=== PATIENT | female | born 1970 | race Caucasian/White ===

== ENCOUNTER 2025-01-13 13:20 | Emergency (ER) | payer MEDICAID, SELFPAY ==
[2025-01-13 13:51] VITALS: BP 126/65; PULSE 63; RESP 18; TEMP 36.7; O2SAT 98; BMI 35.9
--- NOTE | 2025-01-13 14:05 | XR_ITS ---
EXAMINATION: US venous duplex LE LT HISTORY: Left leg pain and swelling COMPARISON: None. FINDINGS: Acuna scale, color doppler, and spectral waveforms of the left lower extremity veins. The imaged veins are unremarkable without evidence of internal thrombus. Spectral Doppler imaging demonstrates normal wave forms. The overlying soft tissues are unremarkable. IMPRESSION: Negative for left lower extremity deep venous thrombosis.
--- NOTE | 2025-01-13 14:06 | EDRME_ITS ---
Rapid Medical Screening Exam [facility] Arrival date/time: 01/13/25 13:20 CC: Left lower extremity pain HPI initially 7 days ago for 3 days then no pain for 2 days and now return of the pain to 2 days behind the knee and the calf and the medial thigh. No prior history of similar events takes no medications denies any right sided leg pain. Chief Complaint: General Adult/Misc Complain Vital signs: Vital Signs Temperature 98.0 F 01/13/25 13:51 Pulse Rate 63 01/13/25 13:51 Respiratory Rate 18 01/13/25 13:51 Blood Pressure 126/65 01/13/25 13:51 Pulse Oximetry (%) 98 01/13/25 13:51 Oxygen Delivery Method Room Air 01/13/25 13:51
[2025-01-13 15:29] LABS: Collection Type, Urine Clean Catch
[2025-01-13 15:39] LABS: Bilirubin,Urine Negative (Negative); Blood,Urine Negative (Negative); Clarity,Urine Clear (Clear/Hazy); Color,Urine Lt-Yellow (Lt Yel-Yel); Glucose, Urine Negative (Negative); Ketones,Urine Negative (Negative); Leukocyte Esterase,Urine Negative (Negative); Nitrite,Urine Negative (Negative); Protein,Urine Negative (Neg - Trace); RBC,Urine < 1 /hpf (0-3); Specific Gravity,Urine 1.018 (1.001-1.035); Squamous Epithelial Cell,Urine 1 /hpf (0-5); Urobilinogen,Urine Negative mg/dL (0.0-1.0); WBC,Urine 1 /hpf (0-5)
[2025-01-13 15:43] LABS: Amphetamine/Methamp Scrn,U Positive (Negative); Barbiturate Screen,Urine Negative (Negative); Benzodiazepines Screen,Urine Negative (Negative); Benzoylecgonine Screen, Ur Negative (Negative); Fentanyl Screen,Urine Negative (Negative); Opiate Screen,Urine Negative (Negative); THC Screen,Urine Negative (Negative)
--- NOTE | 2025-01-13 16:48 | EDNOTE_ITS ---
<Statement entered by Rachna Palmer MD - 01/13/25 17:38> As co-signing physician, I was present and available for consult prn. I concur with the plan and care as documented by the midlevel provider. ED General RME/HPI General Chief complaint: General Adult/Misc Complain Stated complaint: SWOLLEN LEGS Time Seen by Provider: 01/13/25 14:31 Arrival date/time: 01/13/25 13:20 CC: Left leg pain HPI intermittent over the past 7 days denying any other symptoms. Patient denies chest pain shortness of breath or difficulty breathing RME / HPI RME / HPI narrative: 01/13/25 13:20 CC: Left lower extremity pain HPI initially 7 days ago for 3 days then no pain for 2 days and now return of the pain to 2 days behind the knee and the calf and the medial thigh. No prior history of similar events takes no medications denies any right sided leg pain. Related Data Home Medications ?Medication ?Instructions ?Recorded ?Confirmed naproxen 375 mg tablet 375 mg PO QAM 01/19/1801/19 ondansetron HCl 8 mg tablet 8 mg PO Q8H 01/19/1801/19 Previous Rx's ?Medication ?Instructions ?Recorded albuterol sulfate 90 mcg/actuation 2 puff inhalation Q 6H PRN 12/15/17 aerosol inhaler shortness of breath or wheez ing #6.7 grams fluconazole 200 mg tablet 400 mg (2 x 200 mg) PO QDAY #180 12/28/17 tabs amoxicillin 500 mg capsule 500 mg PO TID #30 caps 01/01 07/21 diphenhydramine HCl 25 mg capsule 50 mg (2 x 25 mg) PO TID PRN 06/08/19 (Benadryl) allergy symptoms #30 caps erythromycin 5 mg/gram (0.5 %) eye 0.5 inch ophthalmic (eye) QID 06/08/19 ointment corneal abrasion #1 g albuterol sulfate 90 mcg/actuation 2 inh inhalation Q4 H PRN shortness 09/11/21 aerosol inhaler of breath or wheezing #8.5 g vishnu azithromycin 250 mg tablet See Rx Instructions PO .COM PLEX #6 09/11/21 tabs oxycodone-acetaminophen 5 mg-325 1 tab PO TID PRN pain #15 tabs 05/21/22 mg tablet (Percocet) acetaminophen 325 mg tablet 650 mg (2 x 325 mg) PO QID PRN 01/13/25 (Tylenol) pain #14 tabs Allergies Allergy/AdvReac Type Severity Reaction Status Date / Time ibuprofen Allergy Mild SWELLING Verified 01/13/25 13:22 isac Allergy Mild Rash Verified 01/13/25 13:22 sulfamethoxazole (From Allergy Verified 01/13/25 13:22 Bactrim) trimethoprim (From Bactrim) Allergy Verified 01/13/25 13:22 GREEN BEANS Allergy RASH Uncoded 01/13/25 13:22 Review of Systems Review of Systems Narrative Review of Systems: GEN: No fever, no chills, no weight loss EYES: No discharge, no visual changes, no pain HEENT: No ear pain, no congestion, no sore throat PULM: No shortness of breath, no cough, no congestion CV: No chest pain, no dyspnea on exertion, no palpitations GI: No nausea, no vomiting, no diarrhea, no pain, no constipation : No frequency, no urgency, no dysuria MUSC/SKEL: No joint pain, no back pain SKIN: No rash PSYCH: No hallucinations, no depression HEME/LYMPH: No easy bleeding or bruising tendencies NEURO: No weakness, no headache Past Medical History Past Medical History NEUROLOGIC: Positive Seizures (last 2 years ago,does not take meds); Negative Cerebrovascular Accident CARDIAC: Negative Cardiac Disorders, Myocardial Infarction or Congestive Heart Failure RESPIRATORY: Positive Pneumonia (COVID PNA (09/11/21)); Negative Chronic Obstructive Pulmonary Disease (COPD) GASTROINTESTINAL: Positive Gastrointestinal Disorders (HEPATITIS C), Hepatitis (c) and Obesity GENITOURINARY: Negative Genitourinary Disorders or Renal Disease REPRODUCTIVE: Negative Breast Cancer or Pelvic Inflammatory Disease MUSCULOSKELETAL: Positive Musculoskeletal Disorders and Rheumatoid Arthritis ENDOCRINE: Negative Endocrine Disorders, Diabetes Mellitus Type 1 or Diabetes Mellitus Type 2 HEMATOLOGIC: Negative Blood Disorders PSYCHO/SOCIAL: Positive Recreational Drug Use and Depression OTHER HISTORY: Positive MRSA (blood); Negative Autoimmune Disease, Down Syndrome, Developmental Delay or Breast Cancer Family History FAMILY HISTORY: Positive Family Respiratory Disorders, Family Cardiac Disorders and Family Cancer Social History SMOKING STATUS: Never smoker SUBSTANCE USE: methamphetamine ED Exam Narrative Physical exam: [General: Obese not in any acute distress Head normocephalic HEENT: Within acceptable limits Neck is supple nontender Chest equal chest rise nontender to palpation Respiratory: Clear to auscultation no wheezes crackles or rubs CV: Rate rhythm is regular no murmurs rubs or clicks Abdomen is distended secondary to body habitus soft nontender no masses positive bowel sounds all 4 quadrants Back: No CVA tenderness no spinous process tenderness from cervical spine thoracic and lumbar spine Skin: Intact no petechiae rash induration ulceration or crepitus Extremities: Mild tenderness to the medial thigh left side, with some posterior fossa pain no calf pain. Moving all other extremities against resistance cap refill less than 2 seconds neurosensory intact Neuro: Awake alert oriented x3 Glascow coma 15 no focal deficits] Course Quality Measures none Orders Category Date Time Status US venous duplex LE LT Stat Exams 01/13/25 14:05 Completed Drug Screen,Urine Stat Lab 01/13/25 15:13 Completed Urinalysis Stat Lab 01/13/25 15:13 Completed Vital Signs Vital signs: Vital Signs Temperature 98.0 F 01/13/25 13:51 Pulse Rate 63 01/13/25 13:51 Respiratory Rate 18 01/13/25 13:51 Blood Pressure 126/65 01/13/25 13:51 Pulse Oximetry (%) 98 01/13/25 13:51 Oxygen Delivery Method Room Air 01/13/25 13:51 [facility] Patient data External records reviewed:: [facility] previous records Clinical information provided by:: patient Social determinants that could affect healthcare access:: none Patient has the following chronic illnesses:: None How is presenting disease/condition affected by chronic disease/condition?: uneffected by Evaluation data The following diagnostics were reviewed and interpreted by me:: lab results and radiology exam(s) Lab and/or radiology exams considered but not ordered:: Ultrasound is negative for DVT Urine UDS is positive for methamphetamines Urine is negative for UTI Interpretation Summary: Leg pain methamphetamine abuse Medications Medications considered but not ordered:: None Medication administrations:: None Consultations Consultation(s) initiated? (list below): No Diagnosis Differential Diagnosis ED Complaint MDM: DVT superficial thrombophlebitis leg strain Most likely diagnosis given after review of the tests above:: Leg pain methamphetamine abuse Admission Indicated Admission indicated?: not indicated Explain why admission is indicated or not indicated:: Stable for outpatient follow-up Admission Request Was there a request for admission?: No Disposition Plan Disposition Plan: Discharge Discharge Attestation Discharge Attestation: The patient and all family members were given an opportunity to ask questions and understood the discharge instructions. Discharge instructions specifically effects, indications for sooner follow up or return to the emergency department, and the expected course of current diagnosis. Patient condition: Stable Medical Decision Making Differential Diagnosis Differential Diagnosis: DVT superficial thrombophlebitis leg strain Lab Data Labs: Lab Results 01/13/25 Range/Units 15:13 Ur Collection Type Clean Catch Urine Color Lt-Yellow (Lt Yel-Yel) Urine Clarity Clear (Clear/Hazy) Urine pH 6.0 (5.0-7.0) Ur Specific [place] 1.018 (1.001-1.035) Urine Protein Negative (Neg - Trace) Urine Glucose (UA) Negative (Negative) Urine Ketones Negative (Negative) Urine Blood Negative (Negative) Urine Nitrite Negative (Negative) Urine Bilirubin Negative (Negative) Urine Urobilinogen (Auto) Negative (0.0-1.0) mg/dL Ur Leukocyte Esterase Negative (Negative) Urine RBC < 1 (0-3) /hpf Urine WBC 1 (0-5) /hpf Ur Squamous Epith Cells 1 (0-5) /hpf Urine Bacteria None (None) Urine Opiates Screen Negative (Negative) Urine Fentanyl Screen Negative (Negative) Ur Barbiturates Screen Negative (Negative) U Amphetamin/Meth Scrn Positive A (Negative) U Benzodiazepines Scrn Negative (Negative) U Cocaine Metab Screen Negative (Negative) U Marijuana (THC) Screen Negative (Negative) Discharge Plan Plan Patient Disposition: HOME (Self Care) Patient condition on transfer: Stable Prescriptions/Referrals Prescriptions/Med Rec: New acetaminophen [Tylenol] 325 mg tablet 650 mg PO QID PRN (Reason: pain) Qty: 14 0RF No Action albuterol sulfate 90 mcg/actuation HFA aerosol inhaler 2 inh inhalation Q4H PRN (Reason: shortness of breath or wheezing) Qty: 8.5 0RF azithromycin 250 mg tablet See Rx Instructions .ROUTE .COMPLEX Qty: 6 0RF Rx Instructions: For 250 mg dose pack: take 500 mg today (day 1), then 250 mg for 4 days (days 2-5) oxycodone-acetaminophen [Percocet] 5-325 mg tablet 1 tab PO TID MDD 4 g APAP PRN (Reason: pain) Qty: 15 0RF albuterol sulfate 90 mcg/actuation HFA aerosol inhaler 2 puff INH Q6H PRN (Reason: shortness of breath or wheezing) Qty: 6.7 0RF Rx Instructions: administer with spacer fluconazole 200 mg tablet 400 mg PO QDAY Qty: 180 0RF naproxen 375 mg Tablet 375 mg PO QAM ondansetron HCl 8 mg Tablet 8 mg PO Q8H amoxicillin 500 mg capsule 500 mg PO TID Qty: 30 0RF diphenhydramine HCl [Benadryl] 25 mg capsule 50 mg PO TID PRN (Reason: allergy symptoms) Qty: 30 0RF erythromycin 5 mg/gram (0.5 %) ointment 0.5 inch OPHTHALMIC QID Qty: 1 0RF Referrals: Carlton Benites MD [Primary Care Provider] - In 1 week Problem List Clinical Impression: Leg pain, Methamphetamine abuse Patient/Caregiver Discharge Instructions Education Materials: ED Drug Abuse, ED Muscle Strain, Extremity Additional Instructions: Stop using methamphetamines, if leg pain persists follow-up with your primary care doctor consider referral to orthopedics Print Language: Pashto Stand Alone Forms: Zena Award Info., Patient Portal Info Letter, Work/School Release PA/NETBACKUP ENGINEER Supervising Physician PA/NETBACKUP ENGINEER Supervising Physician: Luis Larsen ENP
== END 2025-01-13 17:22 | disposition home or self-care (01) ==
PROVIDERS: Registered Nurse General Practice; Emergency Provider Emergency Medicine; PCP Family Medicine
DX: M79.605 Pain in left leg (principal); F15.10 Other stimulant abuse, uncomplicated
CPT/HCPCS: 80307; 81001; 93971; 99284